=== PATIENT | male | born 1990 | race Two or more races ===

== ENCOUNTER 2018-01-13 16:49 | Emergency (ER) | payer OTHER ==
[2018-01-13 17:10] VITALS: BP 158/85
--- NOTE | 2018-01-13 17:15 | ED Physician Documentation ---
PD HPI MALE - Stated complaint Stated Complaint: MALE - Chief complaint Chief Complaint: General - History obtained from History obtained from: Patient - History of Present Illness Timing - onset: How many days ago (few) Timing - duration: Days (few) Timing - details: Gradual onset Associated symptoms: Genital sore / lesion. No: Dysuria, Urinary frequency, Unable to urinate, Discharge, Testiclar pain PD HPI MALE CONTRIB FACTORS: Sexually active (just one partner for long time. ) Similar symptoms before: Has not had sx before Recently seen: Not recently seen Review of Systems Constitutional: denies: Fever, Chills, Myalgias : denies: Dysuria, Frequency, Discharge PD PAST MEDICAL HISTORY - Past Medical History Past Medical History: No - Past Surgical History Past Surgical History: No - Present Medications Home Medications: Ambulatory Orders Medication Instructions Recorded Confirmed Mupirocin 1 applic TP TID #15 oint...g. 01/13/18 - Allergies Allergies/Adverse Reactions: Allergies Allergy/AdvReac Type Severity Reaction Status Date / Time No Known Drug Allergies Allergy Verified 01/13/18 17:09 - Social History Does the pt smoke?: No Smoking Status: Never smoker Does the pt drink ETOH?: No Does the pt have substance abuse?: No - Immunizations Immunizations are current?: Yes - POLST Patient has POLST: No PD ED PE NORMAL - Vitals Vital signs reviewed: Yes - General General: Alert and oriented X 3, No acute distress, Well developed/nourished - HEENT HEENT: Pharynx benign - Neck Neck: Supple, no meningeal sign, No adenopathy - Male Male : Other (shaft of penis with 4 small superficial sores, 3 with scabs and one with superficial ulceration. No redness nor swelling, no purulence. ) - Rectal Rectal: Deferred Results - Vitals Vitals: Oxygen O2 Source Room air PD MEDICAL DECISION MAKING - ED course Complexity details: considered differential (looks more like superficial infection rather than herpetic, but got herpetic PCR tast from ulcerative lesion. ), d/w patient Departure - Departure Disposition: 01 Home, Self Care Clinical Impression: Sore of penis Condition: Stable Record reviewed to determine appropriate education?: Yes Instructions: ED Staph Infec Abx Tx Only Prescriptions: Mupirocin 1 applic TP TID #15 oint...g. Comments: I think this looks more like a bacterial skin infection at the hair follicles. Use mupirocin topical antibiotic 3 or 4 times a day to the sores. We did do a viral culture to test for herpes and that will result in about 3 days. Will call you if the results are positive. Recheck if the infection is not better over the next few days. Tylenol or ibuprofen if needed for pains. Discharge Date/Time: 01/13/18 17:56
[2018-01-13] MEDS ORDERED: MUPIROCIN 2% OINT 1 GM TOP STA (17:50)
== END 2018-01-13 17:56 | disposition home or self-care (01) ==
LOC: ED 16:49
DX: N48.9 Disorder of penis, unspecified (principal); L98.9 Disorder of the skin and subcutaneous tissue, unspecified
CPT/HCPCS: 99283; A9270; 87529

== ENCOUNTER 2019-08-19 08:48 | Emergency (ER) | payer OTHER ==
[2019-08-19 08:54] VITALS: BP 142/71
[2019-08-19] MEDS ORDERED: CYCLOBENZAPRINE 10 MG TABLET PO STA (09:06)
[2019-08-19] MEDS ORDERED: MELOXICAM 7.5 MG TABLET PO STA (09:06)
--- NOTE | 2019-08-19 09:10 | ED Physician Documentation ---
PD HPI BACK PAIN - Stated complaint Stated Complaint: BACK PX - Chief complaint Chief Complaint: Back Pain - History obtained from History obtained from: Patient, Family - History of Present Illness Timing - onset: Yesterday Timing - duration: Days (1) Timing - details: Gradual onset Pain level max: 7 Pain level now: 6 Location: Mid, Right Quality: Pain, Spasm Associated symptoms: No: Fever, Weakness, Numbness, Incontinent of urine, Unable to urinate, Hematuria, Incontinent of stool Improves with: Rest Worsened by: Movement Contributing factors: Lifting (furniture) Similar symptoms before: Has not had sx before Recently seen: Not recently seen - Additional information Additional information: took tylenol and ibuprofen yesterday Review of Systems Constitutional: denies: Fever, Chills GI: denies: Vomiting, Diarrhea : denies: Dysuria, Frequency, Incontinent Skin: denies: Rash Musculoskeletal: denies: Neck pain Neurologic: denies: Focal weakness, Numbness PD PAST MEDICAL HISTORY - Past Medical History Past Medical History: No - Past Surgical History Past Surgical History: No - Present Medications Home Medications: Ambulatory Orders Medication Instructions Recorded Confirmed Cyclobenzaprine [Flexeril] 10 mg PO TID PRN #20 tablet 08/19/19 Meloxicam [Mobic] 15 mg PO DAILY PRN #20 tablet 08/19/19 - Allergies Allergies/Adverse Reactions: Allergies Allergy/AdvReac Type Severity Reaction Status Date / Time No Known Drug Allergies Allergy Verified 08/19/19 08:54 - Social History Does the pt smoke?: No Smoking Status: Never smoker Does the pt drink ETOH?: No Does the pt have substance abuse?: No - Immunizations Immunizations are current?: Yes - POLST Patient has POLST: No PD ED PE NORMAL - Vitals Vital signs reviewed: Yes - General General: Alert and oriented X 3, No acute distress - HEENT HEENT: Moist mucous membranes - Neck Neck: Supple, no meningeal sign - Cardiac Cardiac: RRR - Respiratory Respiratory: No respiratory distress, Clear bilaterally - Back Back: No spinal TTP (No midline tenderness to palpation. No step-off or deformity. Tender to palpation right paraspinal approximately T11-12. Mild spasm. No ecchymosis. No crepitus.) - Derm Derm: Warm and dry - Extremities Extremities: Other (Normal bilateral lower extremity patellar and ankle jerk reflexes. Normal great toe extension bilaterally. no saddle anesthesia) - Neuro Neuro: Alert and oriented X 3, No motor deficit, No sensory deficit Results - Vitals Vitals: Vital Signs - 24 hr 08/19/19 08:52 Temperature 36.7 C Heart Rate 50 L Respiratory 16 Rate Blood Pressure 142/71 H O2 Saturation 99 Oxygen O2 Source Room air PD MEDICAL DECISION MAKING - ED course Complexity details: considered differential, d/w patient ED course: Patient with a back strain/spasm. Will place on anti-inflammatories and muscle relaxants for home. Will continue gentle stretching. No evidence of cauda equina, epidural abscess. No evidence of fracture. Patient counseled regarding signs and symptoms for which I believe and urgent re-evaluation would be necessary. Patient with good understanding of and agreement to plan and is comfortable going home at this time This document was made in part using voice recognition software. While efforts are made to proofread this document, sound alike and grammatical errors may occur. Departure - Departure Disposition: 01 Home, Self Care Clinical Impression: Back strain Qualifiers: Encounter type: initial encounter Qualified Code(s): S39.012A - Strain of muscle, fascia and tendon of lower back, initial encounter Condition: Good Instructions: ED Low Back Pain Injury Follow-Up: your,doctor in 1 week [Other] Prescriptions: Cyclobenzaprine [Flexeril] 10 mg PO TID PRN #20 tablet PRN Reason: Spasms Meloxicam [Mobic] 15 mg PO DAILY PRN #20 tablet PRN Reason: pain Comments: Return if you worsen. Follow up with your doctor for further care. Continue gentle stretching at home. Do not drive or operate heavy machinery while taking flexeril. Discharge Date/Time: 08/19/19 09:21
== END 2019-08-19 09:21 | disposition home or self-care (01) ==
LOC: ED 08:48
DX: S29.012A Strain of muscle and tendon of back wall of thorax, initial encounter (principal); X50.0XXA Overexertion from strenuous movement or load, initial encounter; Y93.89 Activity, other specified; M62.830 Muscle spasm of back
CPT/HCPCS: 99282; 99284; A9270

== ENCOUNTER 2021-07-05 13:30 | Emergency (ER) | payer OTHER ==
[2021-07-05] MEDS ORDERED: BUFFERED LIDOCAINE 10 ML SYRINGE SUBQ STA (13:55)
--- NOTE | 2021-07-05 14:44 | ED Physician Documentation ---
PD HPI SKIN - Stated complaint Stated Complaint: RT SIDE LUMP - Chief complaint Chief Complaint: General - History obtained from History obtained from: Patient - History of Present Illness Timing - onset: How many days ago (2) Timing - duration: Days (2) Timing - details: Gradual onset, Still present Location: RUE Quality / character: Painful, Raised, Swelling. No: Draining Associated symptoms: No: Fever, Myalgias, Joint pain, Headache, Facial swelling Contributing factors: Other (has known sebaceous cyst) Similar symptoms before: Diagnosis (Ruptured sebaceous cyst in the axilla) Recently seen: Not recently seen - Additional information Additional information: 30-year-old male with a history of a previous ruptured sebaceous cyst in his right axilla has symptoms again in the right axilla with swelling and tenderness and redness to the right axilla. He is not otherwise feeling ill. He last had this drained in [facility] and at that time had no other treatment. Review of Systems Constitutional: denies: Fever Respiratory: denies: Cough GI: denies: Vomiting PD PAST MEDICAL HISTORY - Past Surgical History Past Surgical History: No - Present Medications Home Medications: Ambulatory Orders Medication Instructions Recorded Confirmed Cyclobenzaprine [Flexeril] 10 mg PO TID PRN #20 tablet 08/19/19 Meloxicam [Mobic] 15 mg PO DAILY PRN #20 tablet 08/19/19 Sulfamethox/Trimeth 800/160 1 each PO BID #14 tablet 07/05/21 [Bactrim Ds] - Allergies Allergies/Adverse Reactions: Allergies Allergy/AdvReac Type Severity Reaction Status Date / Time No Known Drug Allergies Allergy Verified 07/05/21 13:47 - Social History Does the pt smoke?: No Smoking Status: Never smoker Does the pt drink ETOH?: No Does the pt have substance abuse?: No - Immunizations Immunizations are current?: Yes - POLST Patient has POLST: No PD ED PE NORMAL - Vitals Vital signs reviewed: Yes (normal ) - General General: Alert and oriented X 3, No acute distress, Well developed/nourished - HEENT HEENT: Atraumatic, PERRL, EOMI - Respiratory Respiratory: No respiratory distress - Derm Derm: Normal color, Warm and dry, No rash - Extremities Extremities: No deformity, No edema, Other (In the right axilla medially there is a 1 cm raised erythematous papule that is fluctuant centrally and tender. Mild surrounding erythema.) - Neuro Neuro: Alert and oriented X 3, nozzle cement sprayer helper 2-12 intact, No motor deficit, No sensory deficit, Normal speech Eye Opening: Spontaneous Motor: Obeys Commands Verbal: Oriented GCS Score: 15 - Psych Psych: Normal mood, Normal affect Results - Vitals Vitals: Vital Signs - 24 hr 07/05/21 13:43 Temperature 36.7 C Heart Rate 52 L Respiratory 15 Rate Blood Pressure 132/76 H O2 Saturation 100 Oxygen O2 Source Room air Procedures - Abscess I&D (location) right axilla Preparation: Chlorhexadine, Lidocaine 1% Incision: Incised with scalpel, Purulent drainage, Loculations broken, Irrigated, Culture obtained Other: Pt tolerated well, Dressing applied, Antibiotic prescribed PD MEDICAL DECISION MAKING - ED course Complexity details: reviewed old records, re-evaluated patient, considered differential, d/w patient ED course: 28-year-old male with a sebaceous cyst that is ruptured and infected in the right axilla has incision and drainage pus is relieved and the cavity is irrigated it is not packed a culture is obtained we will place him on some Septra. I have indicated the patient that he should consider removal of the cyst once this is healed and well demarcated and not inflamed. Departure - Departure Disposition: 01 Home, Self Care Clinical Impression: Ruptured sebaceous cyst Condition: Stable Instructions: ED Cyst Sebaceous Infec IandD Follow-Up: [facility] [Provider Group] Prescriptions: Sulfamethox/Trimeth 800/160 [Bactrim Ds] 1 each PO BID #14 tablet Comments: Today we have incised and drained the cyst which is ruptured. This will need to heal and her body will need to wall this off before a surgeon can successfully remove it.
[2021-07-05 15:06] VITALS: BP 131/81
== END 2021-07-05 14:55 | disposition home or self-care (01) ==
LOC: ED 13:30
DX: L72.3 Sebaceous cyst (principal)
CPT/HCPCS: 10060; 87070; 87077; 87205